=== PATIENT | male | born 1960 | race Caucasian/White ===

== ENCOUNTER 2017-02-27 09:41 | Emergency (ER) | payer OTHER ==
[~2017-02-27] VITALS: Ht 177.8 cm; Wt 74.6 kg
[2017-02-27 09:45] VITALS: TEMP 36.4; Ht 177.8 cm; Wt 74.6 kg
[2017-02-27] MEDS ORDERED: PROPARACAINE HCL 0.5% OP SOLN 15 ML BTL ONE (09:49)
--- NOTE | 2017-02-27 10:19 | EMERGENCY ROOM VISIT NOTE ---
History Report prepared by Scribe: Clyde Delaney Under the Supervision of: Dr. Carlos Croft D.O. First contact with patient: 09:58 Chief Complaint: EYE ASSESSMENT Stated Complaint: SOMETHING IN LEFT EYE-WORK RELATED INJURY History of Present Illness The patient is a 56 year old male who presents to the Emergency Room with complaints of a constant feeling of something in his left eye that began prior to arrival. He reports that discomfort as a 10/10 in severity. 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 He reports that right after this occurred he felt as if something was stuck in his upper eyelid in the corner. The patient states that the nurses put drops in his eyes for the pain and discomfort and admits that it helped relieve his pain. Source of History: patient Onset: prior to arrival Position: eye (left) Symptom Intensity: 10/10 Timing: constant Review of Systems See HPI for pertinent positives & negatives. A total of 10 systems reviewed and were otherwise negative. Past Medical & Surgical Medical Problems: (1) No active medical problems Family History Patient reports no known family medical history. Social History Smoking Status: Current Every Day Smoker Current/Historical Medications No Active Prescriptions or Reported Meds Allergies Coded Allergies: Morphine and Related (Unverified Allergy, Intermediate, ITCHING, 02/27/17) Physical Exam Vital Signs Date Time Temp Pulse Resp B/P Pulse Ox O2 Delivery O2 Flow Rate FiO2 02/27/17 10:36 78 16 140/83 98 02/27/17 10:30 78 16 140/83 98 Room Air 02/27/17 09:45 36.4 76 18 132/95 97 Room Air Physical Exam CONSTITUTIONAL/VITAL SIGNS: Reviewed / noted above. GENERAL: Non-toxic in appearance. INTEGUMENTARY: Warm, dry, and [place]. HEAD: Normocephalic. EYES: without scleral icterus. I examined under direct visualization as well as slit lamp. With and without fluorescein. There is some mild diffuse fluorescein uptake in a vertical scratch-like pattern. There is increased fluorescein uptake in the 9 to 11 o'clock position on the outside of the iris and nearby sclera. There was no foreign bodies visualized. The eyelids were everted for the exam. Anterior chamber is clear. ENT/OROPHARYNX: clear and moist. LYMPHADENOPATHY/NECK: Is supple without lymphadenopathy or meningismus. RESPIRATORY: Lungs clear and equal. CARDIOVASCULAR: Regular rate and rhythm. GI/ABDOMEN: Soft and nontender. No organomegaly or pulsatile mass. No rebound or guarding. Normal bowel sounds. EXTREMITIES: Warm and well perfused. BACK: No CVA tenderness. NEUROLOGICAL: Intact without focal deficits. PSYCHIATRIC: normal affect. MUSCULOSKELETAL: Normally developed with good muscle tone. TRIAGE NURSING DOCUMENTATION REVIEWED. Medical Decision & Procedures Medications Administered Medications (Trade) Dose Ordered Sig/Leo Route Start Time Stop Time Status Last Admin Dose Admin Proparacaine HCl (Alcaine 0.5% Oph Soln) 225 drops STK-MED ONCE .ROUTE 02/27/17 09:49 02/27/17 09:50 DC 02/27/17 09:49 2 DROPS Ciprofloxacin HCl (Ciprofloxacin 0.3% Op Soln) 2 drops NOW ONCE OP 02/27/17 10:30 02/27/17 10:31 DC 02/27/17 10:27 2 DROPS ED Course 0950: Proparacaine HCl 225 drops OP. 1000: Previous medical records were reviewed. The patient was evaluated in room A12B. A complete history and physical examination was performed. 1030: Ciprofloxacin HCl 2 drops OP. Medical Decision Blood pressure Screening: Patient was found to have an elevated blood pressure and was referred to their primary doctor for recheck and further treatment. Medication Reconciliation: I attest that I have personally reviewed the patient' s current medication list. This is a 56-year-old male who presents to the ED with a chief complaint that he got some dust in his eye when he was using a drill at work. The patient complains of some irritation of the eye. His symptoms do improve with placement of topical numbing medication. The patient's exam included direct visualization as well as slit lamp exam with and without fluorescein. The patient's exam revealed some mild diffuse fluorescein uptake in a vertical fashion as if he blinked with the dust in his eye. There is also a heavy or fluorescein uptake in the 9 to 11 o'clock position at the distal end of the outside of the iris and the nearby sclera. There is no foreign bodies seen under direct visualization or with slit-lamp. The eyelids were everted for the exam. The patient was placed on Ciloxan. He was felt to be stable for discharge. Impression Primary Impression: Conjunctival abrasion Scribe Attestation The scribe's documentation has been prepared under my direction and personally reviewed by me in its entirety. I confirm that the note above accurately reflects all work, treatment, procedures, and medical decision making performed by me. Departure Information Dispostion Home / Self-Care Prescriptions No Active Prescriptions or Reported Meds Referrals No Doctor, Assigned (PCP) Patient Instructions ED Eye Injury Corneal Abrasion, [facility] Additional Instructions Ciloxan antibiotic eyedrops: 2 drops every 4 hours until symptoms resolve. Proparacaine numbing drops: 1 drop in the affected eye every one to 2 hours as needed until pain subsides. Symptoms should be improved by tomorrow. If symptoms persist, contact your pest control specialist and follow up for recheck in 24 -48 hours.
[2017-02-27] MEDS ORDERED: CIPROFLOXACIN HCL 0.3% OP SOLN 2.5 ML BTL OP ONE (10:30)
[2017-02-27 10:36] VITALS: BP 140/83; PULSE 78; O2SAT 98
== END 2017-02-27 10:30 | disposition home or self-care (01) ==
LOC: C.EDB 09:44 → C.EDA 10:30
DX: S05.02XA Injury of conjunctiva and corneal abrasion without foreign body, left eye, initial encounter (principal); X58.XXXA Exposure to other specified factors, initial encounter; Y92.69 Other specified industrial and construction area as the place of occurrence of the external cause; Y99.0 Civilian activity done for income or pay; F17.200 Nicotine dependence, unspecified, uncomplicated